=== PATIENT | female | born 1975 | race Caucasian/White ===

== ENCOUNTER → 2020-08-04 14:37 | Outpatient (CLI) | payer BC, SELFPAY ==
--- NOTE | ~2020-08-04 | US_ITS ---
EXAMINATION: US pelvic complete DATE: 08/04/2020 14:55 INDICATION: Menorrhagia Comparison:No prior studies for comparison. TECHNIQUE: Multiple transabdominal sonographic images of the pelvis performed. FINDINGS: The uterus measures 10.7 x 5.5 x 7.4 cm. There is a small uterine fibroid measuring 1.2 cm. The endometrial complex measures 1.7 cm. The right ovary measures 2.5 x 2.2 x 1.5 cm and the left ovary measures 2.5 x 1.9 x 1.9 cm. There ar e small follicles in each ovary. Normal doppler signal in both ovaries. There is no free fluid in the pelvis. There are no abnormal masses seen on either side. IMPRESSION: 1. Endometrial thickening measuring 1.7 cm. 2: Small uterine fibroid measuring 1.2 cm maximum dimension. Reviewed, dictated and finalized at location A.
== END ==
PROVIDERS: Visit Provider Nurse Practitioner
DX: N93.8 Other specified abnormal uterine and vaginal bleeding (principal); D25.9 Leiomyoma of uterus, unspecified
CPT/HCPCS: 76856